=== PATIENT | female | born 2000 | race Caucasian/White ===

== ENCOUNTER 2024-06-16 21:17 | Inpatient (IN) ==
[2024-06-17] MEDS ORDERED: LIDOCAINE 1% LOCAL 20 ML VIAL INFIL PRN (01:50)
[2024-06-17] MEDS ORDERED: OXYTOCIN 30 UNITS/NSS 30 UNITS/500 ML BAG IV PRN ×2 (01:50→12:29)
[2024-06-17 02:28] LABS: Hematocrit (blood only) 33.4 % (37.0-47.0); Hemoglobin 11.7 g/dl (12.0-16.0); Mean Corpuscular Hemoglobin 30.4 pg (25.0-34.0); Mean Corpuscular Volume 86.8 fL (80.0-100.0); Mean Platelet Volume 12.4 fL (9.4-12.4); Platelet Count 163 K/uL (130-400); RDW Coefficient of Variation 12.8 % (11.5-14.5); Red Blood Count 3.85 M/uL (4.20-5.40); White Blood Count 11.89 K/ul (4.8-10.8)
[2024-06-17] MEDS: LACTATED RINGER'S 1,000 ML IV SCH (02:35)
[2024-06-17] MEDS ORDERED: NALBUPHINE HCL INJ 10 MG/ML AMP IV PRN (02:51)
[2024-06-17] MEDS ORDERED: ROPIVACAINE 0.5% PF 5 MG/ML 20 ML VIAL EPI PRN (02:51)
[2024-06-17] MEDS ORDERED: BUPIVACAINE 0.25% PF 30 ML VIAL EPI PRN (02:51)
[2024-06-17] MEDS ORDERED: NALOXONE HCL 0.4 MG/1 ML VIAL/CARP IV PRN (02:51)
[2024-06-17] MEDS ORDERED: NALOXONE HCL 1 MG in SODIUM CHLORIDE 0.9% 1,000 ML IV PRN (02:51)
[2024-06-17] MEDS ORDERED: diphenhydrAMINE 50 MG/ML VIAL IV PRN (02:51)
[2024-06-17] MEDS ORDERED: ePHEDrine sulfate 50 MG/ML AMP IV PRN (02:51)
[2024-06-17] MEDS ORDERED: fentaNYL citrate PF 100 MCG/2 ML VIAL EPI PRN (02:51)
[2024-06-17] MEDS ORDERED: SODIUM CHLORIDE 0.9% PF INJ 10 ML VIAL EPI PRN (02:51)
[2024-06-17] MEDS ORDERED: LIDOCAINE 2% MPF LOCAL 5 ML VIAL EPI PRN (02:51)
--- NOTE | 2024-06-17 02:51 | Anesthesiology Consultation ---
Date of Service June 17, 2024 Assessment & Plan (1) Encounter for pre-operative examination: Chart Review Chart Review: Patient NOT seen in Pre Admission Testing and Acceptable Risk for Labor Epidural Consults Requested none History Height/Weight Height: 5 ft 7 in Weight: 95.708 kg Allergies Allergy/AdvReac Type Severity Reaction Status Date / Time No Known Allergies Allergy Unknown Verified 06/16/24 21:35 Medications Home Medications Medication Instructions Recorded Confirmed Last Taken loratadine 10 mg tablet (Claritin) 10 mg PO DAILY PRN allergies 03/27/24 06/16/24 06/16/24 21-iron fu-folic acid 1 tab PO DAILY 03/27/24 06/11/24 06/16/24 [ Complete] ferrous sulfate 325 mg (65 mg 65 mg PO BID 06/05/24 06/16/24 06/16/24 iron) tablet (Iron (ferrous sulfate)) Active Medications Generic Name Dose Route Start Last Admin Trade Name Freq PRN Reason Stop Dose Admin Lactated Ringer's 1,000 mls @ 125 mls/hr 06/17/24 02:00 06/17/24 02:35 Lr IV 06/18/24 01:59 999 mls/hr .Q8H SUSANA Administration Past Medical History Medical History Well adolescent visit without abnormal findings Viral respiratory illness Varicella vaccination Past Family History Family History Grandmother (Maternal) Breast cancer Ovarian cancer Aunt Breast cancer Paternal Grandfather (Paternal) Myocardial infarction Uncle Myocardial infarction Maternal Uncle Denies family history of Prostate cancer Colorectal cancer Past Surgical History Surgical History [place] teeth extracted Social History Smoking Status: Never smoker Do You Dip or Chew Tobacco: No Hx Alcohol Use: No Hx Substance Use: No substance use type: does not use Physical Exam Vital Signs Last Vital Signs Temp 97.7 F 06/17/24 02:05 Pulse 91 H 06/17/24 02:05 Resp 22 06/17/24 02:05 BP 111/70 06/17/24 02:05 Testing Laboratory Results 06/17/24 02:11
[2024-06-17] MEDS: BUPIVACAINE 0.25% PF 30 ML VIAL ONE (03:10)
[2024-06-17] MEDS: LIDOCAINE 2%/EPINEPHRINE 1:200,000 20 ML PF ONE (03:11)
[2024-06-17] MEDS: fentANYL 2 MCG/ML BUPIVacaine 0.125%-NSS 100ML BAG ONE (03:12)
[2024-06-17] MEDS: fentaNYL citrate PF 100 MCG/2 ML VIAL ONE (03:39)
[2024-06-17] MEDS: SODIUM CHLORIDE 0.9% PF INJ 10 ML VIAL ONE (03:39)
[2024-06-17] MEDS: ePHEDrine sulfate 50 MG/ML AMP ONE (06:53)
--- NOTE | 2024-06-17 07:15 | History & Physical Report ---
Date of Service June 17, 2024 Assessment & Plan (1) : Plan: 24 yo at 40 2/7 wga presents in labor VSS Fetus cat 1 Labor - s/p arom, pit prn GBS neg epidural in place Admission and Anticipated Discharge Date Admission Date: June 17, 2024 History of Present Illness Chief Complaint: ctx Primary Care Provider: Mackenzie Mayo MD 24 yo at 40 2/7 wga presents w/ ctx increasing in frequency and intensity. Initially was 1.5on arrival, over 4 hours progressed to 3cm PNI: hep B nonimm Past site superintendent hx G1 2022 sab G2 current denies hx stis Allergies Allergy/AdvReac Type Severity Reaction Status Date / Time No Known Allergies Allergy Unknown Verified 06/16/24 21:35 Home Medications Medication Instructions Recorded Confirmed Type loratadine 10 mg tablet (Claritin) 10 mg PO DAILY PRN allergies 03/27/24 06/16/24 History 21-iron fu-folic acid 1 tab PO DAILY 03/27/24 06/11/24 History [ Complete] ferrous sulfate 325 mg (65 mg 65 mg PO BID 06/05/24 06/16/24 History iron) tablet (Iron (ferrous sulfate)) Patient History Medical History Well adolescent visit without abnormal findings Viral respiratory illness Varicella vaccination Surgical History [place] teeth extracted Family History Grandmother (Maternal) Breast cancer Ovarian cancer Aunt Breast cancer Paternal Grandfather (Paternal) Myocardial infarction Uncle Myocardial infarction Maternal Uncle Denies family history of Prostate cancer Colorectal cancer Social History Smoking Status: Never smoker Second Hand Exposure: Yes; Do You Dip or Chew Tobacco: No; Hx Alcohol Use: No Hx Substance Use: No Preferred Language: Vietnamese Communication Ability: Effective Visual Impairment: Limited Hearing Ability: Normal Scheduling Coordinator Required: No Beliefs That Will Affect Care: None marital status: marital status details: Chiki Richardson (25) [phone] Current Living Situation: Spouse Current Living Situation Comment: Lives with spouse, dogs current occupational status: employed current occupation: sales How many Children do You have: 0 Other Information That Helps Us Care for You: No Feels Safe at Home: Yes Safety Concerns: Feels Safe At This Time Childhood Exposure to Second-Hand Smoke: No Diet: regular caffeine: Yes during the past year weight has: remained stable Dental Care, Regularly: Yes Physical Activity Frequency: Daily Seatbelt Use: always Sunscreen Use: No Do you think of yourself as: straight/heterosexual Sexual Activity: has been sexually active within the last 12 months Gender Identity: Female Assistive Devices: Glasses Physical Exam Genitourinary: OB Exam Abdomen: + vertex (confirmed by bsus) and + estimated weight (EFW 7-8) Manual OB Exam: + cervical dilation 3 cm, + cervical effacement 70%, + station -2 and + amniotic fluid (arom clear) OB Exam Monitor Tracing: + external FHT monitor used, + external uterine monitor used (q4-5) and + category I (130/mod/+accel/-decel) Results & Data Vital Signs (Past 12 Hours) Vital Signs Temp Pulse Resp BP Pulse Ox 06/17/24 07:09 98 06/17/24 07:09 95 H 06/17/24 07:09 91 H 111/61 06/17/24 07:04 88 99 06/17/24 06:59 85 98 06/17/24 06:55 96 H 137/65 06/17/24 06:54 96 H 100 06/17/24 06:49 85 98 06/17/24 06:44 81 98 06/17/24 06:40 90 122/69 06/17/24 06:39 85 98 06/17/24 06:34 82 97 06/17/24 06:29 88 99 06/17/24 06:24 100 H 98 06/17/24 06:23 95 H 122/58 L 06/17/24 06:19 93 H 98 06/17/24 06:14 81 98 06/17/24 06:09 97 06/17/24 06:09 87 06/17/24 06:09 81 124/58 L 06/17/24 06:04 101 H 99 06/17/24 05:59 88 98 06/17/24 05:54 87 110/55 L 98 06/17/24 05:49 89 99 06/17/24 05:44 77 98 06/17/24 05:39 81 108/54 L 99 06/17/24 05:34 84 97 06/17/24 05:29 81 97 06/17/24 05:24 84 105/52 L 97 06/17/24 05:19 79 98 06/17/24 05:14 82 99 06/17/24 05:12 16 06/17/24 05:12 98.4 F 16 06/17/24 05:09 93 H 99 06/17/24 05:08 87 106/61 06/17/24 05:04 91 H 99 06/17/24 04:59 76 98 06/17/24 04:54 79 98 06/17/24 04:53 84 103/61 06/17/24 04:49 80 98 06/17/24 04:44 83 98 06/17/24 04:39 81 98 06/17/24 04:38 78 108/57 L 06/17/24 04:34 86 98 06/17/24 04:29 79 97 06/17/24 04:24 99 06/17/24 04:24 83 06/17/24 04:24 86 119/71 06/17/24 04:19 82 99 06/17/24 04:14 81 98 06/17/24 04:09 77 116/68 98 06/17/24 04:04 77 99 06/17/24 03:59 76 98 06/17/24 03:54 74 99 06/17/24 03:53 77 122/67 06/17/24 03:52 80 94 06/17/24 03:49 66 100 06/17/24 03:44 68 100 06/17/24 03:39 76 100 06/17/24 03:37 85 123/69 06/17/24 03:35 88 89 L 06/17/24 03:34 87 100 06/17/24 03:29 81 100 06/17/24 03:24 76 18 110/62 100 06/17/24 03:19 77 100 06/17/24 03:18 79 20 126/62 06/17/24 03:15 80 148/79 H 06/17/24 03:14 84 100 06/17/24 03:12 20 06/17/24 03:12 78 20 117/81 06/17/24 03:09 81 100 06/17/24 03:08 92 H 117/64 06/17/24 03:05 101 H 128/69 06/17/24 03:04 88 100 06/17/24 02:59 100 H 100 06/17/24 02:05 97.7 F 91 H 22 111/70 06/16/24 21:40 78 122/77 06/16/24 21:37 98.6 F 20 Laboratory Results OB Labs: Blood Type AB Positive 11/11/23 Antibody Screen NEGATIVE 11/11/23 Hgb 10.0 g/dl (12.0-16.0) L 03/26/24 Hct 29.4 % (37.0-47.0) L 03/26/24 MCV 85.9 fL (80.0-100.0) 11/11/23 Plt Count 155 K/uL (130-400) 11/11/23 Rubella IgG Antibody Immune (Immune) 11/11/23 RPR Nonreactive (Nonreactive) 11/11/23 Hep Bs Antigen NON-REACTIVE (NON-REACTIVE) 11/11/23 Hepatitis C Ab (EIA) NON-REACTIVE (NON-REACTIVE) 11/11/23 HIV (1&2) Ag & Ab Conf NON-REACTIVE (NON-REACTIVE) 11/11/23 Glucose 1 Hr 50 gm 117 mg/dl (70-130) 03/26/24 OB Optional Labs: Chlamydia trachomatis RNA Not Detected (NotDetected) 11/11/23 Neisseria gonorrhoeae RNA Not Detected (NotDetected) 11/11/23 Labs Reviewed: cfdna-low risk--mln GBS neg Diagnostic Findings ant plac Coding Level of Care Code None Diagnoses Z34.90
[2024-06-17] MEDS: OXYTOCIN 30 UNITS/NSS 30 UNITS/500 ML BAG IV PRN (07:49)
[2024-06-17] MEDS: fentANYL 2 MCG/ML BUPIVacaine 0.125%-NSS 100ML BAG EPI PRN (10:32)
--- NOTE | 2024-06-17 11:56 | Anesthesia Procedure Note ---
Date of Service June 17, 2024 Anesthesia Post Epidural Note Vital Signs Vital Signs: Temp Pulse Resp BP Pulse Ox 36.8 C 98 H 16 124/56 L 97 06/17/24 07:10 06/17/24 11:54 06/17/24 05:12 06/17/24 11:53 06/17/24 11:54 Pain Intensity Bilateral Lower Abdomen: Pain Intensity: 6 Notes Mental Status: alert / awake / arousable and participated in evaluation Nausea / Vomiting: adequately controlled Pain: adequately controlled Airway Patency, RR, SpO2: stable & adequate BP & HR: stable & adequate Hydration State: stable & adequate Neuraxial Anesthesia: was administered and sensory block is resolving Anesthetic Complications: no major complications apparent Epidural: Removed without complications and With tip intact
--- NOTE | 2024-06-17 12:28 | Delivery Summary ---
Vaginal Delivery Summary Date of Service June 17, 2024 Vaginal Delivery Summary and 2nd Degree LAC PREOPERATIVE DIAGNOSIS: 1. Single intrauterine at 40 2/7 wga 2. Labor POSTOPERATIVE DIAGNOSIS: 1. Single intrauterine at 40 2/7 wga 2. Labor 3. Delivered PROCEDURE: 1. Normal spontaneous vaginal delivery. SURGEON: Raquel Farooq MD ANESTHESIA: Epidural. QUANTITATIVE BLOOD LOSS: 50 mL FLUIDS: Continuous LR. URINE OUTPUT: 200cc by straight cath COMPLICATIONS: None. CONDITION: Stable. INDICATIONS: 24 yo at 40 2/7 wga presented in labor. She progressed to 3cm during caro period. She received an epidural for pain control and underwent arom. Pitocin was started and she progressed to complete and desired to push. FINDINGS: A viable female infant, weight pending with Apgars of 8 and 9 at 1 and 5 minutes respectively. SPECIMEN: Cord blood OPERATIVE REPORT: The patient progressed to 10 cm, 100% effaced and +2 station, pushed over intact perineum with anesthesia to deliver a viable female , weight and Apgars as above. Head of delivered in RUDY position. Body cord was delivered through. Body and shoulders were delivered without difficulty. was delivered to maternal abdomen and nursing staff. Delayed cord clamping was performed for 60 seconds. Cord was clamped and cut. Cord blood was obtained. Placenta delivered spontaneously intact with 3-vessel cord. IV oxytocin and fundal massage were given for excellent hemostasis. Vagina, cervix, perineum, and placenta were inspected. A second degree laceration was repaired using 3-0 vicryl. There was excellent hemostasis. Sponge and needle counts correct x2. No sponges were left behind. Mother and stable in immediate period. [facility] [place] Vaginal Delivery Charge Vaginal Delivery Codes: 94812 global code for the antepartum, delivery, and post- Delivery Type Details: and 2nd Degree LAC
[2024-06-17] MEDS ORDERED: HYDROCORTISONE ACETATE 25 MG SUPP PR PRN (12:29)
[2024-06-17] MEDS: BENZOCAINE 20% SPRY 85 APPLN/85 GM CAN EXT PRN (14:49)
[2024-06-17] MEDS: IBUPROFEN 600 MG TAB PO PRN (14:50)
[2024-06-17] MEDS: DOCUSATE SODIUM 100 MG CAP PO SCH (20:02)
[2024-06-17] MEDS: fentaNYL citrate PF 100 MCG/2 ML VIAL EPI STA (23:46)
[2024-06-17] MEDS: LIDOCAINE 2%/EPINEPHRINE 1:200,000 20 ML PF EPI STA (23:46)
[2024-06-17] MEDS: SODIUM CHLORIDE 0.9% PF INJ 10 ML VIAL EPI STA (23:46)
[2024-06-17] MEDS: DIPHTHER/TETAN/PERTUS Vaccine (Tdap, Adol/Adult) 0.5mL IM ONE (23:46)
[2024-06-17] MEDS: BUPIVACAINE 0.25% PF 30 ML VIAL EPI STA (23:46)
[2024-06-17] MEDS: ACETAMINOPHEN 325 MG TAB PO PRN (23:52)
--- NOTE | 2024-06-18 05:46 | Obstetrical Progress Note ---
Date of Service <Oni Luis MD - Last Filed: 06/18/24 06:33> June 18, 2024 Assessment & Plan <Oni Luis MD - Last Filed: 06/18/24 06:33> (1) Prior miscarriage with , antepartum: (2) care and examination: Plan PPD1 s/p term : Stable. Rh+, gbs neg, ri Continue routine care, continue OOB and ambulation, diet as tolerated DC later today <Raquel Farooq MD - Last Filed: 06/18/24 06:56> (1) Prior miscarriage with , antepartum: (2) care and examination: Subjective <Oni Luis MD - Last Filed: 06/18/24 06:33> Sammi is a 24 y/o female who is PPD#1 following at term. Reports minimal pain. Is voiding, eating, ambulating normally Having appropriate lochia Planning for exclusive . Constitutional: no fever, no chills or no sweats Respiratory: no dyspnea Cardiovascular: no chest pain, no palpitations or no calf pain Breast: no breast pain Gastrointestinal: no nausea or no vomiting Genitourinary (female): no dysuria Neurologic: no headache(s) no changes in vision, no headaches Physical Exam <Oni Luis MD - Last Filed: 06/18/24 06:33> General: Alert, oriented. No acute distress. Cardiac: Regular rate and rhythm, no murmurs, rubs, or gallops. Respiratory: Clear to auscultation bilaterally. No increased work of breathing. Symmetrical chest rise. No respiratory distress. Abdomen: Soft, nontender, nondistended. Bowel sounds present. Uterus: Uterine fundus firm, nontender. Lower extremities: No lower extremity edema or swelling. No deep calf pain. Results & Data <Oni Luis MD - Last Filed: 06/18/24 06:33> Vital Signs (Past 12 Hours) Vital Signs Temp Pulse Resp BP Pulse Ox O2 Del Method 06/18/24 03:45 36.3 C L 92 H 18 117/69 96 Room Air 06/18/24 02:44 36.4 C L 83 16 115/74 97 Room Air 06/17/24 22:44 36.6 C 82 18 129/76 96 Room Air 06/17/24 21:22 76 123/77 06/17/24 18:52 36.7 C 94 H 18 129/77 97 Room Air Supervising Physician <Raquel Farooq MD - Last Filed: 06/18/24 06:56> Co-Signing Physician Notes Resident Physician Supervision Note: I interviewed and examined the patient. Discussed with Dr. Luis and agree with findings and plan as documented in the note. Any exceptions or clarifications are listed here: PP1 sp , doing well. VSS, exam benign and wnl. Desires dc today Documented By: Raquel Farooq MD Resident Activity Tracking <Oni Luis MD - Last Filed: 06/18/24 06:33> Resident Involvement: Resident Care Provided Care Provided: Adult Hospital Medicine and OB Delivery
[2024-06-18] MEDS: FERROUS SULFATE 325 MG TAB PO SCH (08:45)
[2024-06-18] MEDS: PRENATAL VITAMIN 1 TAB PO SCH (08:45)
[2024-06-18 11:06] VITALS: O2SAT 98
[2024-06-18 11:45] VITALS: BP 133/83; RESP 18; TEMP 97.7
[2024-06-18 18:28] VITALS: PULSE 92
[2024-06-18] MEDS ORDERED: bisacodyL 5 MG TABEC PO SCH (20:00)
[2024-06-19] MEDS ORDERED: bisacodyL 10 MG SUPP PR PRN (06:00)
== END 2024-06-18 19:58 | disposition home or self-care (01) | DRG 807 ==
LOC: OPB 21:17 → 4S1 21:20 → 4E2 06-17 15:30